=== PATIENT | male | born 1980 | race Two or more races ===

== ENCOUNTER 2017-01-23 14:49 | Emergency (ER) | payer OTHER ==
[~2017-01-23] VITALS: Ht 188 cm; Wt 109.8 kg
[2017-01-23 15:00] VITALS: BP 138/86
== END 2017-01-23 18:09 | disposition home or self-care (01) ==
LOC: ER 14:49
DX: S63.641A Sprain of metacarpophalangeal joint of right thumb, initial encounter (principal); W22.8XXA Striking against or struck by other objects, initial encounter; Y93.89 Activity, other specified; Y99.8 Other external cause status; Y92.89 Other specified places as the place of occurrence of the external cause
CPT/HCPCS: 73130

== ENCOUNTER 2024-07-02 13:28 | Emergency (ER) | payer BC, OTHER ==
[~2024-07-02] VITALS: Ht 188 cm; Wt 130.0 kg
[2024-07-02 16:08] LABS: Basophils # (auto) 0.1 10 ^3/uL (0-0.2); Basophils % (auto) 0.8 % (0.0-2.0); Eosinophils # (auto) 0.3 10 ^3/uL (0-0.8); Eosinophils % (auto) 2.5 % (0.0-7.0); Hematocrit 45.3 % (41.0-53.0); Hemoglobin 15.1 g/dL (13.5-17.5); Lymphocytes # (auto) 2.7 10 ^3/uL (0.4-5.4); Lymphocytes % (auto) 26.4 % (10.0-50.0); Mean Corpuscular Hemoglobin 29.2 pg (28.0-32.0); Mean Corpuscular Hgb Conc. 33.4 g/dL (32.0-36.0); Mean Corpuscular Volume 87.3 fL (80.0-100.0); Monocytes # (auto) 0.7 10 ^3/uL (0-1.3); Monocytes % (auto) 6.7 % (0.0-12.0); Neutrophils # (auto) 6.5 10 ^3/uL (1.6-8.6); Neutrophils % (auto) 63.6 % (37.0-80.0); Red Blood Cells 5.18 10^6/uL (4.5-5.90); Red Cell Distribution Width 14.7 % (11.8-14.3); White Blood Cell 10.2 10^3/uL (4.4-10.8)
[2024-07-02 16:21] LABS: Chloride 106 mmol/L (98-107); Potassium 4.2 mmol/L (3.5-5.1); Sodium 141 mmol/L (136-145)
[2024-07-02 16:22] LABS: Anion Gap 9 (5-15); Calcium 9.4 mg/dL (8.7-10.4); Carbon Dioxide 26 mmol/L (20-30)
[2024-07-02 16:27] LABS: BUN/Creatinine Ratio 10.8 (10.0-20.0); Blood Urea Nitrogen 12 mg/dL (9-23); Glucose 105 mg/dL (74-106)
[2024-07-02 18:12] VITALS: BP 146/86; PULSE 68; RESP 18; TEMP 97.8; O2SAT 99
== END 2024-07-02 18:20 | disposition home or self-care (01) ==
LOC: ER 13:28
DX: S90.31XA Contusion of right foot, initial encounter (principal); M79.671 Pain in right foot; M25.474 Effusion, right foot; W04.XXXA Fall while being carried or supported by other persons, initial encounter; Y93.89 Activity, other specified; Y92.89 Other specified places as the place of occurrence of the external cause; Y99.8 Other external cause status
CPT/HCPCS: 36415; 73610; 73630; 80048; 85025